=== PATIENT | female | born 1970 ===

== ENCOUNTER 2018-09-18 07:47 | Day surgery (SDC) | payer BC ==
[2018-09-15 13:05] VITALS: BMI 25.0
[2018-09-18 10:07] LABS: HEMOGLOBIN 14.1 g/dL (12.0-16.0); MEAN CELL VOLUME 86.5 fl (81.0-99.0); MEAN CORPUSCULAR HEMOGLOBIN 28.9 pg (27.0-31.0); MEAN CORPUSCULAR HGB CONC 33.4 g/dL (33.0-37.0); RBC 4.87 Mil/uL (3.80-5.20); RED CELL DISTRIBUTION WIDTH 13.4 % (11.5-14.5); WHITE BLOOD COUNT 7.4 K/uL (4.8-10.8)
[2018-09-18] MEDS ORDERED: Propofol 10 mg/ml Inj (20 ML) ONE (10:14)
[2018-09-18] MEDS ORDERED: Midazolam 2 MG/2 ML VIAL ONE (10:14)
[2018-09-18] MEDS ORDERED: Dexamethasone 4 mg/1 ml ONE (10:15)
[2018-09-18] MEDS ORDERED: Lidocaine 1% 5ml Abboject ONE (10:15)
[2018-09-18] MEDS ORDERED: Ferric Subsulfate Sol(60 mL) ONE (10:46)
[2018-09-18] MEDS ORDERED: ACETIC ACID 3% 30 ML LIQUID MC ONE (10:46)
[2018-09-18] MEDS ORDERED: Lactated Ringer's 1,000 ML IV ONE (11:02)
[2018-09-18] MEDS ORDERED: HYDROmorphone 0.5 mg/0.5 ml ISec IVP PRN (11:03)
[2018-09-18] MEDS ORDERED: Lactated Ringer's 1,000 ML IV SCH (11:15)
[2018-09-18 11:34] VITALS: RESP 18
--- NOTE | 2018-09-18 15:11 | OP ---
PROCEDURE DATE: 07/19/2018 PREOPERATIVE DIAGNOSIS: A 48-year-old G4, P2-0-2-2 with thickened endometrium, status post endometrial ablation in 2008. POSTOPERATIVE DIAGNOSIS: A 48-year-old G4, P2-0-2-2 with thickened endometrium, status post endometrial ablation in 2008. PROCEDURES: Cervical dilation, attempted diagnostic hysteroscopy and endometrial biopsy. SURGEON: Akosua Mcdonald MD. ANESTHESIOLOGIST: Jason Edwards MD. ANESTHESIA: General endotracheal tube, anesthesia was LMA. FINDINGS: A likely false passage created through the external os. COMPLICATIONS: None. ESTIMATED BLOOD LOSS: Less than 10 mL. DEFICIT: 265 mL. DESCRIPTION OF PROCEDURE: The patient was taken to the operating room with IV running. She was placed under general anesthesia in the dorsal supine position. She was then prepped and draped in the usual sterile fashion in the dorsal lithotomy position. Initially, her bladder was emptied of about 80 mL of clear urine. A weighted speculum was placed in the posterior fornix of the vagina and a right angle retractor was placed in the anterior wall of the vagina. A single-tooth tenaculum was placed at the anterior lip of the cervix. The cervix was dilated to to 18 to accommodate the MyoSure scope. The MyoSure scope was then placed through the external os and with the saline running and revealed a false cavity with the appearance of stroma. The scope was then removed. The cervix was then attempted to be re-dilated and an endometrial pipelle from the office was used and sounded to about 7 cm to obtain an endometrial biopsy. This was done twice with 2 sterile pipelles and the specimen was sent to Pathology. Monsel's was placed at the tenaculum sites for hemostasis. Then, all instruments were removed from the vagina. The patient tolerated the procedure well and was taken to the recovery room in stable condition. Akosua Mcdonald MD MTDLang
[2018-09-18 15:40] VITALS: BP 122/79; PULSE 67; TEMP 97.9; O2SAT 98
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
== END 2018-09-18 16:20 | disposition home or self-care (01) ==
LOC: H.OPSURG 07:47
PROVIDERS: ATTEND Obstetrics & Gynecology
DX: R93.89 Abnormal findings on diagnostic imaging of other specified body structures (principal); J45.909 Unspecified asthma, uncomplicated; I10 Essential (primary) hypertension; Z98.51 Tubal ligation status
CPT/HCPCS: 36415; 58558; 85027; 86850; 86900; 88305; J1100; J1170; J2250; J2704; J2765; J3010; J7030; J7120

== ENCOUNTER 2018-11-13 08:23 | Observation (INO) | payer BC ==
[2018-11-11 09:59] VITALS: BMI 28.3
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
[2018-11-13] MEDS ORDERED: Phenylephrine 10 mg/ml Inj ONE (09:18)
[2018-11-13] MEDS ORDERED: Lidocaine 4% (Laryng-O-Jet) Kit MM ONE (09:18)
[2018-11-13] MEDS ORDERED: Propofol 10 mg/ml Inj (20 ML) ONE (09:18)
[2018-11-13] MEDS ORDERED: Succinylcholine 200 mg/10 ml Inj IV ONE (09:18)
[2018-11-13] MEDS ORDERED: ePHEDrine 50 mg/ml Inj ONE (09:18)
[2018-11-13] MEDS ORDERED: Midazolam 2 MG/2 ML VIAL ONE (09:18)
[2018-11-13] MEDS ORDERED: Lactated Ringer's 1,000 ML IV ONE ×4 (10:00→15:30)
[2018-11-13] MEDS ORDERED: Dexamethasone 4 mg/1 ml ONE (10:19)
[2018-11-13] MEDS ORDERED: Bupivacaine 0.5% Inj(30mL) ONE (10:28)
[2018-11-13] MEDS ORDERED: Rocuronium 10 mg/ml (5 ml) ONE (11:57)
[2018-11-13] MEDS ORDERED: Neostigmine 1:1000 (1 mg/ml) Inj ONE (12:54)
[2018-11-13] MEDS ORDERED: DiphenhydrAMINE 50 mg/ml Inj IVP PRN (13:46)
[2018-11-13] MEDS ORDERED: HYDROmorphone 0.5 mg/0.5 ml ISec IVP PRN (13:46)
[2018-11-13] MEDS ORDERED: Lactated Ringer's 1,000 ML IV SCH (14:00)
[2018-11-13] MEDS: Lactated Ringer's 1,000 ML IV SCH (23:25)
--- NOTE | 2018-11-14 04:06 | OP ---
ADDENDUM PROCEDURE DATE: 11/13/2018 This will be addendum to Dr. Mcdonald's report. Dr. Mcdonald requested cystoscopy with stents. PREOPERATIVE DIAGNOSIS: Chronic debilitating pelvic pain. POSTOPERATIVE DIAGNOSES: Chronic debilitating pelvic pain with large adhesions and much adhesions towards the fundus, in the cul_de_sac, and towards the pelvis and I was called in to perform the cystoscopy and stents. DESCRIPTION OF PROCEDURE: Upon entering the operating room, the patient was prepped and draped in a normal sterile fashion. Attention was then turned to the patient's urethra where cystoscope was inserted. The ureteral orifices were identified. They were stented with catheter; 5 mL of ICG green were injected, and a similar procedure was performed on the right side. Instruments were then removed from the patient's bladder. I proceeded to assist Dr. Mcdonald in the hysterectomy, helped create exposure, I was helpful in obtaining hemostasis, extraction of the specimen, and closure of the patient. The procedure would not have been possible without my assistance. The rest of the dictation will be provided by Dr. Peng Mcdonald. Jose Luis Sherman MD PROCEDURE DATE: 11/13/2018 PREOPERATIVE DIAGNOSIS: This is a 48-year-old 4, para 2-0-2-2 with chronic pelvic pain. POSTOPERATIVE DIAGNOSIS: This is a 48-year-old 4, para 2-0-2-2 with chronic pelvic pain and thick omental adhesions to the uterus, the right broad ligament, the right adnexa, and to the anterior abdominal wall. PROCEDURES: Robotic hysterectomy, lysis of adhesions, bilateral salpingectomy, and cystoscopy with stents. The cystoscopy with stents was performed by Dr. Jose Luis Sherman and that procedure will be dictated by him. SURGEON: Akosua Mcdonald MD GM MOBILE: Dr. Jose Luis Sherman was the life science research assistant and hartman of this case. He was instrumental in the care of the patient. He was present for the entire duration of the case. He assisted in placing the ports in the abdomen and in docking the robot. He performed the right side of the robotic hysterectomy and also skeletonized the uterine arteries and isolated the cuff. He was instrumental in removing the tubes and the uterus from the abdomen. He also performed the cystoscopy with stents. This procedure could not have been possible without his guidance and assistance. ANESTHESIA: Endotracheal tube anesthesia. ANESTHESIA ADMINISTERED BY: Yeimy Gray MD FINDINGS: Small anteverted uterus, normal-appearing ovaries. Tubes appeared to be status post tubal ligation. There were thick omental adhesions to the uterine fundus, the posterior aspect of the uterus to the right adnexa and to the right broad ligament. There were also omental adhesions to the right side of the anterior abdominal wall. It should be noted that the VCare was seen to be through the right fundus of the uterus at the beginning of the case and was replaced under direct visualization. COMPLICATIONS: None. ESTIMATED BLOOD LOSS: Less then 50 mL. DESCRIPTION OF PROCEDURE: After informed consent was obtained, the patient was taken to the operating room where she was placed under general anesthesia. She was then placed in the dorsal lithotomy position and prepped and draped in the usual sterile fashion. The cystoscopy and stent placement were performed at this time, to be dictated by Dr. Jose Luis Sherman. Following the cystoscopy, a bivalved speculum was placed in the vagina. The cervix was visualized and grasped with a single-tooth tenaculum. The cervix was gently dilated and a VCare uterine manipulator was inserted into the uterine cavity as a means to manipulate the uterus. The tenaculum was removed from the cervix. Attention was then turned to the urethra where a Arriaga catheter was inserted to monitor the patient's urinary output. Attention was then turned to about 5 centimeters above the umbilicus where an 8-mm incision was made after infusion of Marcaine. The Veress needle was inserted into the abdominal cavity. The gas was applied. The opening pressure was low. The abdomen was insufflated to 18 mmHg, and then the pneumoperitoneum was set to 15 mmHg. An 8-mm port was introduced into the abdomen and placement was confirmed with the laparoscope. The VCare was seen to be through the right side of the uterine fundus, and this was removed and replaced under direct visualization, and was no longer through the fundus. The abdomen was surveyed and there was noted to be omental adhesions to the right anterior abdominal wall. An 8-mm port was then placed about 20 cm to the left side and lateral to the original incision. The skin was infused with Marcaine, and an 8-mm port was introduced into the abdominal cavity under direct visualization. The laparoscopic scissors were then placed through that port and under visualization, the omental adhesions were removed that were attached to the right anterior abdominal wall. Attention was then turned to the area that was about 20 cm to the right and lateral to the initial incision, and again Marcaine was infused followed by an 8-mm port placed under direct visualization. About 12 cm lateral to the right of the initial incision, an 8-mm port was introduced into the abdominal cavity under direct visualization and about 10 cm to the left of the initial incision, a 5-mm accessory port was placed. All the ports were placed in a similar fashion after the infusion of Marcaine and under direct visualization. The patient was then placed in Trendelenburg. The abdomen was surveyed with the findings as noted above. The instruments used for the surgery were the PK dissector, scissors, the ProGrasp, and the Jesu SutureCut. All instruments were inserted under direct visualization and The robot was docked without complication. Dr. Sherman broke scrub and moved over to the surgical console. He initially dissected the thick omental adhesions that were attached to the uterine fundus, the posterior aspect of the uterus, the right broad ligament and to the right adnexa. Following the lysis of adhesions, the right utero-ovarian ligament was coagulated with PK dissector and transected with the scissors. The right tube was then coagulated and transected in a similar manner. The right round ligament was coagulated with the PK dissector and transected with the scissors. The vesicouterine peritoneum was undermined with the PK dissector, and the scissors created the bladder flap, passed the midline at the level of the cuff as identified by the Jymobare manipulator. Attention was then turned to the posterior peritoneum as it was undermined with the PK dissector, and the scissors were used to come across and dissect the right side of the posterior peritoneum. The right uterine artery was then coagulated. Attention was then turned to the left side of the uterus. I then proceeded to break scrub and moved over to the surgical console. Attention was then turned to the left side of the uterus where the utero-ovarian ligament and the tube were coagulated and transected. The left round ligament was then coagulated with the PK dissector and transected with the scissors. The vesicouterine peritoneum was undermined from the left side and was incised at the level of the VCare uterine manipulator. The posterior peritoneum on the left side was then dissected away. The left uterine artery was then coagulated and cut. Dr. Sherman then sat at the console to dissect away the tissue from the vaginal cuff. He then transected the right uterine artery. The VCare was then identified circumferentially, and the colpotomy was made using the scissors with coagulation. The uterus and cervix were then amputated from the vagina. Dr. Sherman then coagulated and cut the mesosalpinx of the tubes and the remaining portion of tubes were placed in the anterior cul-de-sac, and the were then removed through the vagina using ring forceps. Dr. Sherman then also removed the cervix and uterus through the vagina as the cervix of the specimen was guided with the ProGrasp. I then started to close the vaginal cuff with a 2-0 barbed suture. The needle was accidentally cut off the suture with the Jesu Suture Cut. At this time, Dr. Sherman sat at the console and was able to retrieve the needle and it was removed from the patient's abdomen. He then used a new 2-0 barbed suture to close the rest of the cuff. The abdomen was well irrigated. The irrigation was removed with a suction device. All instruments were then removed from the abdomen. The incisions were repaired with a 4-0 Monocryl. Dermabond was applied to the incisions. All sponge, lap, needle and instrument counts were correct. The patient received 2 g of Ancef prior to the procedure. The patient was taken to the recovery room awake, extubated in stable condition. Akosua Mcdonald MD MTDLang
[2018-11-14] MEDS: Lactated Ringer's 1,000 ML IV SCH (05:36)
[2018-11-14 06:56] LABS: HEMOGLOBIN 11.4 g/dL (12.0-16.0); MEAN CELL VOLUME 87.2 fl (81.0-99.0); MEAN CORPUSCULAR HGB CONC 33.3 g/dL (33.0-37.0); RBC 3.94 Mil/uL (3.80-5.20); RED CELL DISTRIBUTION WIDTH 13.2 % (11.5-14.5); WHITE BLOOD COUNT 14.5 K/uL (4.8-10.8)
[2018-11-14] MEDS ORDERED: Oxycodone/Acetaminophen 5/325 mg Tab PO PRN (09:23)
--- NOTE | 2018-11-14 10:34 | CP.PCM.PN ---
Subjective - Date & Time of Evaluation Date of Evaluation: 11/14/18 Time of Evaluation: 09:30 - Subjective Subjective: Pt reports that she feels sore, tolerating clear liquids, ambulated and voided. Objective - Vital Signs/Intake and Output Vital Signs (last 24 hours): Temp Pulse Resp BP Pulse Ox 99.4 F 62 18 103/72 99 11/14/18 08:35 11/14/18 08:35 11/14/18 08:35 11/14/18 08:35 11/14/18 08:35 Intake and Output: 11/14/18 11/14/18 06:59 18:59 Intake Total 1600 Output Total 2300 Balance -700 - Medications Medications: Current Medications Hydromorphone HCl (Dilaudid 0.2 Mg/Ml Mine Utility Operator) 0 mg IV PRN PRN; Protocol PRN Reason: Pain, moderate (4-7) Last Admin: 11/13/18 16:00 Dose: 0 mg Lactated Ringer's (Lactated Ringer's) 1,000 mls @ 125 mls/hr IV .Q8H LYNDSAY Lactated Ringer's (Lactated Ringer's) 1,000 mls @ 125 mls/hr IV .Q8H LYNDSAY Last Admin: 11/14/18 05:36 Dose: 125 mls/hr Ibuprofen (Motrin Tab) 600 mg PO Q6 PRN PRN Reason: pain 1-3 Oxycodone/Acetaminophen (Percocet 5/325 Mg Tab) 1 tab PO Q4 PRN PRN Reason: pain 4-7 Stop: 11/17/18 09:24 Oxycodone/Acetaminophen (Percocet 5/325 Mg Tab) 2 tab PO Q4 PRN PRN Reason: pain 7-10 Stop: 11/17/18 09:24 - Labs Labs: 11/14/18 06:30 - Constitutional Appears: Well - Respiratory Exam Respiratory Exam: Clear to Ausculation Bilateral - Cardiovascular Exam Cardiovascular Exam: REGULAR RHYTHM - GI/Abdominal Exam GI & Abdominal Exam: Soft, Normal Bowel Sounds Additional comments: Incisions w/ tegaderm in place. - Extremities Exam Extremities Exam: Normal Inspection Assessment and Plan - Assessment and Plan (Free Text) Assessment: 48 yo POD 1 s/p Robotic hysterectomy, KUMAR, b/l salpingectomy, cysto w/ stents, doing well Will advance diet to regular and encourage ambulation and incentive spirometer Rx's motrin and percocet placed in chart Pt to be discharged home later today
[2018-11-14] MEDS: Oxycodone/Acetaminophen 5/325 mg Tab PO PRN ×2 (12:52→20:42)
--- NOTE | 2018-11-14 16:58 | CP.PCM.PN ---
Subjective - Date & Time of Evaluation Date of Evaluation: 11/14/18 Time of Evaluation: 16:55 - Subjective Subjective: Called for temp 100.8. Pt reports that she has abdominal cramps, denies pain w/ urination, denies nausea and vomiting. Objective - Vital Signs/Intake and Output Vital Signs (last 24 hours): Temp Pulse Resp BP Pulse Ox 99.6 F 68 18 104/59 L 98 11/14/18 12:50 11/14/18 12:50 11/14/18 12:50 11/14/18 12:50 11/14/18 12:50 Intake and Output: 11/14/18 11/14/18 06:59 18:59 Intake Total 1600 Output Total 2300 Balance -700 - Medications Medications: Current Medications Lactated Ringer's (Lactated Ringer's) 1,000 mls @ 125 mls/hr IV .Q8H LYNDSAY Lactated Ringer's (Lactated Ringer's) 1,000 mls @ 125 mls/hr IV .Q8H [facility] Last Admin: 11/14/18 05:36 Dose: 125 mls/hr Ibuprofen (Motrin Tab) 600 mg PO Q6 PRN PRN Reason: pain 1-3 or fever 100.4 or abo Oxycodone/Acetaminophen (Percocet 5/325 Mg Tab) 1 tab PO Q4 PRN PRN Reason: pain 4-7 Stop: 11/17/18 09:24 Last Admin: 11/14/18 12:52 Dose: 1 tab Oxycodone/Acetaminophen (Percocet 5/325 Mg Tab) 2 tab PO Q4 PRN PRN Reason: pain 7-10 Stop: 11/17/18 09:24 - Labs Labs: 11/14/18 06:30 - Constitutional Appears: Non-toxic - GI/Abdominal Exam GI & Abdominal Exam: Normal Bowel Sounds Additional comments: Incisions w/ tegaderm - Extremities Exam Extremities Exam: Normal Inspection Assessment and Plan - Assessment and Plan (Free Text) Assessment: POD 1 s/p Robotic hysterectomy,KUMAR, b/l salpingectomy, and cystoscopy w/ stents now w/ fever 100.8 Will obtain urine cx Pt encouraged to ambulate and use incentive spirometer Will follow vitals
[2018-11-14] MEDS ORDERED: Chlorhexidine Gluconate 1 APPL/PKT TP ONE (20:39)
[2018-11-15] MEDS: Lactated Ringer's 1,000 ML IV SCH (00:31)
[2018-11-15] MEDS: Oxycodone/Acetaminophen 5/325 mg Tab PO PRN (07:05)
--- NOTE | 2018-11-15 09:42 | CP.PCM.PN ---
Subjective - Date & Time of Evaluation Date of Evaluation: 11/15/18 Time of Evaluation: 08:00 - Subjective Subjective: Pt reports that she has passed gas and had a small bowel movement last night after the suppository was placed. Pt denies feeling constipated. Pt is ambulating, eating, urinating w/o difficulty and feels ready to go home today. Objective - Vital Signs/Intake and Output Vital Signs (last 24 hours): Temp Pulse Resp BP Pulse Ox 98.5 F 68 18 126/83 99 11/15/18 05:00 11/15/18 05:00 11/15/18 05:00 11/15/18 05:00 11/15/18 05:00 - Medications Medications: Current Medications Lactated Ringer's (Lactated Ringer's) 1,000 mls @ 125 mls/hr IV .Q8H LYNDSAY Lactated Ringer's (Lactated Ringer's) 1,000 mls @ 125 mls/hr IV .Q8H LYNDSAY Last Admin: 11/15/18 00:31 Dose: 125 mls/hr Ibuprofen (Motrin Tab) 600 mg PO Q6 PRN PRN Reason: pain 1-3 or fever 100.4 or abo Oxycodone/Acetaminophen (Percocet 5/325 Mg Tab) 1 tab PO Q4 PRN PRN Reason: pain 4-7 Stop: 11/17/18 09:24 Last Admin: 11/15/18 07:05 Dose: 1 tab Oxycodone/Acetaminophen (Percocet 5/325 Mg Tab) 2 tab PO Q4 PRN PRN Reason: pain 7-10 Stop: 11/17/18 09:24 - Labs Labs: 11/14/18 06:30 - Constitutional Appears: Well - Respiratory Exam Respiratory Exam: Clear to Ausculation Bilateral - Cardiovascular Exam Cardiovascular Exam: REGULAR RHYTHM - GI/Abdominal Exam GI & Abdominal Exam: Normal Bowel Sounds Additional comments: Incisions w/ tegaderm - Extremities Exam Extremities Exam: Normal Inspection Assessment and Plan - Assessment and Plan (Free Text) Assessment: 48 yo POD 2 s/p Robotic hysterectomy, KUMAR, b/l salpingectomy, and cystoscopy w/ stents, doing well. Rx's motrin and percocet in chart. Pt discharged home in stable condition and told to follow up in the office in 2 weeks.
[2018-11-15 10:19] VITALS: BP 143/79; PULSE 73; RESP 20; TEMP 98.4; O2SAT 98
[2018-11-15] MEDS ORDERED: Pneumococcal 23-Valent Vaccine IM ONE (10:54)
== END 2018-11-15 12:15 | disposition home or self-care (01) ==
LOC: H.OPSURG 08:23 → H.PEDS 15:19
PROVIDERS: ADMIT Obstetrics & Gynecology; ATTEND Obstetrics & Gynecology
DX: D25.2 Subserosal leiomyoma of uterus (principal); N72 Inflammatory disease of cervix uteri; N73.6 Female pelvic peritoneal adhesions (postinfective); R10.2 Pelvic and perineal pain; N85.4 Malposition of uterus; R50.82 Postprocedural fever; B96.20 Unspecified Escherichia coli [E. coli] as the cause of diseases classified elsewhere; Z23 Encounter for immunization; Z98.82 Breast implant status
CPT/HCPCS: 36415; 52005; 58570; 85027; 86850; 86900; 87086; 87181; 88305; 90732; 94770; 96374; G0009; G0378; J0131; J0330; J0690; J1100; J1170; J1885; J2001; J2250; J2370; J2405; J2704; J2710; J3010; J7030; J7120; S2900